=== PATIENT | female | born 1945 | race Caucasian/White ===

== ENCOUNTER → 2025-03-07 | Outpatient (CLI) | payer MEDICARE, BC ==
[2025-03-07 09:05] LABS: BASO # 0.03 K/mm3 (0.02-0.10); EOS # 0.12 K/mm3 (0.04-0.40); EOS % 1.8 % (1.0-5.0); HEMOGLOBIN 14.1 g/dL (12.5-16.0); LYMPH# 1.27 K/mm3 (1.50-4.00); MEAN CELL VOLUME 88 fl (78-100); MEAN CORPUSCULAR HEMOGLOBIN 28 pg (27-31); MEAN CORPUSCULAR HGB CONC 31 g/dL (33-37); MEAN PLATELET VOLUME 8.8 fl (7.4-10.4); MONO # 0.86 K/mm3 (0.20-0.80); NEU # 4.33 K/mm3 (1.40-6.50); PLATELET COUNT 304 K/mm3 (130-400); RED BLOOD COUNT 5.09 M/mm3 (4.10-5.30); RED CELL DISTRIBUTION WIDTH 15.8 % (11.5-14.5); WHITE BLOOD COUNT 6.6 K/mm3 (4.8-10.8)
[2025-03-07 09:11] LABS: ALBUMIN 4.3 g/dL (3.4-4.8)
[2025-03-07 09:12] LABS: CALCIUM 10.5 mg/dL (8.3-10.5)
[2025-03-07 09:13] LABS: TOTAL PROTEIN 8.7 g/dL (6.2-8.1)
[2025-03-07 09:15] LABS: TOTAL BILIRUBIN 0.6 mg/dL (0.2-1.2)
== END ==
LOC: LAB 08:47
PROVIDERS: Family Medicine
DX: I10 Essential (primary) hypertension (principal); E11.9 Type 2 diabetes mellitus without complications; E55.9 Vitamin D deficiency, unspecified